=== PATIENT | male | born 1945 | race Caucasian/White ===

== ENCOUNTER 2017-08-12 23:14 | Emergency (ER) | payer MEDICARE, BC ==
--- NOTE | 2017-08-13 | RAD ---
PA CHEST WITH TWO VIEWS LEFT RIBS: Date: 08-12-17 History: Left sided chest pain when coughing and sneezing. Patient fell earlier this week. FINDINGS: The cardiac silhouette and pulmonary vasculature are within normal limits. The lungs are clear. No pn eumothorax or pleural effusion is seen. There are degenerative changes in the lumbar spine. No left sided rib fracture is appreciated. IMPRESSION: 1. No acute cardiopulmonary process. 2. No left sided rib fractures visualized. POS: [facility]
[2017-08-13 00:31] LABS: #Eosinphils 0.1 thou/uL (0.0-0.7); #Lymphocytes 1.5 thou/uL (1.20-3.40); #Monocytes 0.4 thou/uL (0.11-0.59); #Neutrophils 3.9 thou/uL (1.40-6.50); %Basophils 0.4 % (0.0-1.0); %Eosinophils 2.4 % (0.0-10.0); %Lymphocytes 24.5 % (21.0-51.0); %Neutrophils 65.7 % (42.0-75.0); Hemoglobin 13.1 g/dL (14.0-18.0); Mean Corpuscular HGB CONC 32.8 g/dL (32.0-36.0); Mean Corpuscular Hemoglobin 32.3 pg (27.0-31.0); Mean Corpuscular Volume 98.5 fl (80.0-94.0); Mean Platelet Volume 8.4 fL (7.4-10.4); Platelet Count 150 thou/uL (130-400); RBC Distribution Width 11.9 % (11.5-14.5); Red Blood Cell (RBC) Count 4.06 mill/uL (4.70-6.10); White Blood Cell (WBC) Count 5.9 thou/uL (4.8-10.8)
[2017-08-13 00:55] LABS: ALT (SGPT) 16 U/L (8-55); AST (SGOT) 22 U/L (5-34); Albumin 4.1 g/dL (3.4-4.8); Alkaline Phosphatase 46 U/L (40-150); Anion Gap 13 mmol/L (10-20); BUN (Urea Nitrogen) 22 mg/dL (8.4-25.7); Bilirubin, Total 0.7 mg/dL (0.2-1.2); Calc. Creatinine Clearance 0 mL/min (70-130); Calcium 9.5 mg/dL (7.8-10.44); Carbon Dioxide 25 mmol/L (23-31); Chloride 105 mmol/L (98-107); Estimated GFR-MDRD 68; Globulin 2.2 g/dL (2.4-3.5); Glucose 147 mg/dL (80-115); Potassium 3.8 mmol/L (3.5-5.1); Protein, Total 6.3 g/dL (5.8-8.1); Sodium 139 mmol/L (136-145)
[2017-08-13 01:00] LABS: CKMB 2.8 ng/mL (0-6.6); Troponin I Less than 0.010 ng/mL (< 0.028)
--- NOTE | 2017-08-18 19:03 | EKG ---
Test Reason : CHEST PAIN Blood Pressure : / mmHG Vent. Rate : 076 BPM Atrial Rate : 076 BPM P-R Int : 180 ms QRS Dur : 096 ms QT Int : 362 ms P-R-T Axes : 012 -23 026 degrees QTc Int : 407 ms Normal sinus rhythm Minimal voltage criteria for LVH, may be normal variant Borderline ECG Confirmed by MY TURNER, GEOR[place] ([id number]), editor magazine KELBY HARRIS ([id number]) on 08/18/2017 7:02:20 PM Referred By: Confirmed By:GEORGIA PEPE MD
== END 2017-08-13 01:28 | disposition home or self-care (01) ==
LOC: ERS 23:14
DX: R07.89 Other chest pain (principal); E11.9 Type 2 diabetes mellitus without complications; I10 Essential (primary) hypertension; E78.5 Hyperlipidemia, unspecified
CPT/HCPCS: 36415; 80053; 82553; 84484; 85025; 93005

== ENCOUNTER 2018-05-09 14:14 | Outpatient (CLI) | payer MEDICARE, BC ==
[~2018-05-09 14:14] MED LIST: Gadobenate Dimeglumine 529 MG/1 ML (20ML VIAL) ONE
--- NOTE | 2018-05-09 15:58 | MRI ---
LUMBAR SPINE MRI WITH AND WITHOUT CONTRAST: 05/09/18 INDICATION: Low back pain, lumbar radiculopathy, left lower extremity pain. FINDINGS: There is prominent disc degenerative disease at L5-S1 with marked narrowing of the distal space, end plate degenerative signal alteration, mild retrolisthesis of L5 on S1 and prominent marginal osteophy te formation. The conus medullaris has normal morphology, terminating at the L1-2 level. No evidence of acute compression fracture. There is evidence of prior posterior decompression at L5-S1 level. Wit hin the imaged retroperitoneum, there is a cyst of the lateral aspect of the right kidney with journalism internship al complex signal, incompletely evaluated. Finding is not well assessed on postcontrast imaging due t o the degree of patient motion. There is no mass producing intramedullary enhancement of the conus medullaris. There is prominent epi dural enhancement of the postoperative lumbosacral region encasing the terminal thecal sac with assoc iated constriction. This does result in severe central canal stenosis at L5-S1 when combined with dis c osteophyte complex. There is moderate biforaminal stenosis at L5-S1 as well. 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 Minimal posterior bulging discs are present at the L1-2, L2-3, and L3-4 with slight effacement of the ventral thecal sac. No high grade foraminal stenosis at these levels. L4-5: There is a broad based disc osteophyte complex which is combined with ligamentous redundancy an d bilateral moderate degenerative facet hypertrophy producing severe central canal stenosis. IMPRESSION: 1. Postoperative lumbar spine with severe central canal stenosis at the L4-5 and L5-S1 levels as described above. 2. Complex cystic lesion of the right kidney suggested, incompletely evaluated. Recommend follow up with renal mass protocol CT of abdomen to further evaluate. POS: [facility]
== END 2018-05-09 14:15 | disposition home or self-care (01) ==
LOC: TBSIIMAG 14:14
PROVIDERS: ATTEND Internal Medicine
DX: M54.16 Radiculopathy, lumbar region (principal); M48.061 Spinal stenosis, lumbar region without neurogenic claudication; M48.07 Spinal stenosis, lumbosacral region; Z98.890 Other specified postprocedural states
CPT/HCPCS: 72158; 82565; A9579

== ENCOUNTER 2018-07-22 00:52 | Observation (INO) | payer MEDICARE, BC ==
[2018-07-22 01:17] LABS: #Basophils 0.1 thou/uL (0.0-0.2); #Eosinphils 0.1 thou/uL (0.0-0.7); #Lymphocytes 1.4 thou/uL (1.20-3.40); #Monocytes 0.6 thou/uL (0.11-0.59); #Neutrophils 7.7 thou/uL (1.40-6.50); %Basophils 0.6 % (0.0-1.0); %Eosinophils 1.3 % (0.0-10.0); %Lymphocytes 14.3 % (21.0-51.0); %Monocytes 5.9 % (0.0-10.0); %Neutrophils 77.9 % (42.0-75.0); Mean Corpuscular HGB CONC 33.5 g/dL (32.0-36.0); Mean Corpuscular Hemoglobin 32.7 pg (27.0-31.0); Mean Corpuscular Volume 97.7 fL (78.0-98.0); Mean Platelet Volume 8.3 fL (7.4-10.4); Platelet Count 174 thou/uL (130-400); Red Blood Cell (RBC) Count 4.28 mill/uL (4.70-6.10); White Blood Cell (WBC) Count 9.9 thou/uL (4.8-10.8)
[2018-07-22 01:40] LABS: ALT (SGPT) 35 U/L (8-55); AST (SGOT) 21 U/L (5-34); Albumin 4.2 g/dL (3.4-4.8); Alkaline Phosphatase 56 U/L (40-150); Anion Gap 13 mmol/L (10-20); BUN (Urea Nitrogen) 21 mg/dL (8.4-25.7); Bilirubin, Total 0.6 mg/dL (0.2-1.2); Calc. Creatinine Clearance 0 mL/min (70-130); Carbon Dioxide 26 mmol/L (23-31); Chloride 104 mmol/L (98-107); Estimated GFR-MDRD 65; Globulin 2.6 g/dL (2.4-3.5); Glucose 137 mg/dL (80-115); Potassium 4.2 mmol/L (3.5-5.1); Protein, Total 6.8 g/dL (5.8-8.1); Sodium 139 mmol/L (136-145)
[2018-07-22] MEDS ORDERED: Nitroglycerin 2% Ointment 1 INCH/1 GM Packet ONE (01:56)
[2018-07-22] MEDS ORDERED: Aspirin 325 MG TAB ONE (01:56)
[2018-07-22 03:58] VITALS: BMI 31.4
[2018-07-22 05:55] LABS: Troponin I Less than 0.010 ng/mL (< 0.028)
[2018-07-22 07:38] LABS: Troponin I Less than 0.010 ng/mL (< 0.028)
[2018-07-22] MEDS ORDERED: Dextrose 50% Abboject 50 ML SYRINGE SLOW IVP PRN (08:26)
[2018-07-22] MEDS ORDERED: Acetaminophen 325 MG TAB PO PRN (08:26)
[2018-07-22] MEDS ORDERED: Senokot S 8.6-50 MG TAB PO PRN (08:26)
[2018-07-22] MEDS ORDERED: HumaLOG 300 UNITS/3 ML VIAL SC PRN ×2 (08:26)
[2018-07-22] MEDS ORDERED: Acetaminophen/Codeine 30-300mg Tablet PO PRN (08:26)
[2018-07-22] MEDS ORDERED: Dextrose 5% in Water 1,000 ML IV PRN (08:26)
[2018-07-22] MEDS ORDERED: Nitroglycerin 0.4 MG TAB (25 Tab Bottle) PO PRN (08:26)
--- NOTE | 2018-07-22 08:29 | RAD ---
SINGLE VIEW OF CHEST: Date: 07/22/18 HISTORY: Chest pain. FINDINGS: Single view of the chest shows a normal sized cardiomediastinal silhouette. There is no evidence of c onsolidation, mass, or pleural effusion. The bones are unremarkable. IMPRESSION: No evidence of acute cardiopulmonary disease. POS: [facility]
[2018-07-22] MEDS ORDERED: Enoxaparin Sodium 40 MG/0.4 ML SYRINGE SC SCH (09:00)
[2018-07-22] MEDS ORDERED: Aspirin 325 MG TAB PO SCH (09:00)
[2018-07-22] MEDS ORDERED: Famotidine 20 MG TAB PO SCH (09:00)
[2018-07-22] MEDS ORDERED: Atorvastatin Calcium 10 MG TAB PO SCH (09:00)
[2018-07-22 09:05] LABS: Cardiac Risk 2.7 (Less than 4.5)
[2018-07-22] MEDS ORDERED: ADENOSINE 60 MG/20 ML VIAL ONE (09:20)
--- NOTE | 2018-07-22 11:24 | ULT ---
RIGHT UPPER QUADRANT ULTRASOUND: HISTORY: Right upper quadrant pain. Evaluate for cholecystitis. COMPARISON: None. TECHNIQUE: Utilizing a multihertz transducer, sonographic imaging of the right upper quadrant is performed in th e longitudinal and transverse plane. FINDINGS: Limited evaluation of the pancreas due to bowel gas. Increased echogenicity of the liver may be due to technical limitations versus hepatic steatosis vers us hepatocellular disease. Subsequent evaluation for hepatic masses and intrahepatic biliary dilatat ion is limited. Contour of the hepatic margin cannot be adequately assessed. Limited evaluation of the common bile duct. Main portal vein appears to be patent. Appropriate direction of flow. Anechoic focus in the mid pole of the right kidney measuring 2.6 x 2.6 x 3.0 cm compatible with a cys t. Overall, the right kidney measures 9.4 x 5.0 x 5.6 cm. No hydronephrosis. No sonographic evidence of cholelithiasis, gallbladder wall thickening, or pericholecystic fluid. Co mment is not made on the presence of absence of Will's sign. IMPRESSION: 1. Limited evaluation due to body habitus and bowel gas. 2. No sonographic evidence of cholelithiasis or cholecystitis. 3. Right renal cyst. 4. Increased echogenicity of the liver as described above. If there is concern for hepatic masses, liver mass protocol CT or abdomen MRI can be performed. POS: [facility]
[2018-07-22 12:51] VITALS: BP 132/74; TEMP 97.4
--- NOTE | 2018-07-22 14:10 | NM ---
NUCLEAR MEDICINE CARDIAC STRESS TEST WITH EJECTION FRACTION: History: Chest pain. Comparison: None. Technique: Stress and rest performed after the intravenous administration of 33 and 10.2 mCi Techneti um 99M Sestamibi respectively. FINDINGS: Exam is limited as the patient refused the CT scan with the stress images. No evidence of scar or ischemia. Abdominal wall motion. Calculated ejection fraction is 54%. IMPRESSION: Normal exam. POS: [facility]
--- NOTE | 2018-07-22 15:32 | HP ---
REASON FOR ADMISSION: Chest pain. HISTORY OF PRESENTING ILLNESS: The patient gives history of waking up in the middle of the night for chest pain, which was all across his lower chest. This pain was radiating to the back. No complaints of palpitation, PND, or orthopnea. No complaints of cough. He has had no fever. No abdominal pain as such. No diarrhea or urinary symptoms. PAST MEDICAL AND SURGICAL HISTORY: Diabetes mellitus type 2, dyslipidemia, prior history of shingles more than 15 years ago, appendectomy, back surgery, right side rotator cuff repair, bilateral knee replacement, disk issues with likely sciatic on the left side. 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 CURRENT MEDICATIONS: 1. Metformin 500 mg twice daily. 2. Aspirin 81 mg p.o. daily. 3. Irbesartan 150 mg daily. ALLERGIES: ALLERGIC TO IODINE. PERSONAL HISTORY: Does not abuse alcohol or drugs. No history of smoking. He ambulates by himself. FAMILY HISTORY: Mother is living and is 92 years old. Father at the age of 88. He has had history of [place]. REVIEW OF SYSTEMS: CONSTITUTIONAL: Negative for weight loss or gain, ability to conduct usual activities. SKIN: Negative for rash, itching. EYES: Negative for double vision, pain. ENT/MOUTH: Negative for nose bleeding, neck stiffness, pain, tenderness. CARDIOVASCULAR: Negative for palpitations, dyspnea on exertion, orthopnea. RESPIRATORY: Negative for shortness of breath, wheezing, cough, hemoptysis, fever or night sweats. GASTROINTESTINAL: Negative for poor appetite, abdominal pain, heartburn, nausea , vomiting, constipation, or diarrhea. GENITOURINARY: Negative for urgency, frequency, dysuria, nocturia. MUSCULOSKELETAL: Negative for pain, swelling. NEUROLOGIC/PSYCHIATRIC: Negative for anxiety, depression. ALLERGY/IMMUNOLOGIC: Negative for skin rash, bleeding tendency. PHYSICAL EXAMINATION: GENERAL: The patient is a 72-year-old male, who is currently not in any acute distress. VITAL SIGNS: Blood pressure 130/84, pulse 86 per minute, respiratory rate 20 per minute, temperature 98.4 degrees Fahrenheit, saturating 97% on room air. NECK: Supple. No elevated JVD. HEENT: Eyes; extraocular muscles intact. Pupils reacting to light. Oral cavity, mucous membranes are moist. No exudates or congestion. CARDIOVASCULAR: S1 and S2 heard. Regular rhythm. RESPIRATORY: Air entry 2+ bilateral. No rales or rhonchi. ABDOMEN: Soft. Bowel sounds heard. No tenderness, rigidity, or guarding. EXTREMITIES: No peripheral edema or calf tenderness. VASCULAR: Peripheral pulses 2+ bilateral. No ischemic ulcerations or gangrene. CENTRAL NERVOUS SYSTEM: No gross focal deficits noted. The patient is alert, awake, and oriented well. PSYCHIATRIC: The patient's mood is euthymic. No hallucinations or delusions. CODE STATUS: Full. Power of neurology teacher is his . LABORATORY DATA: EKG done shows normal sinus rhythm at 91 beats per minute. There is poor R-wave progression. White count of 9, H and H of 14 and 41, platelet count 174, with 77% neutrophils, MCV is 97. Electrolytes stable. BUN 21, creatinine 1.1, serum glucose 137. Troponin x3 negative. Albumin 4.2, LDL 92. Total cholesterol 170, triglycerides 71, HDL 64. Chest x-ray done shows no acute cardiopulmonary abnormalities. Right upper quadrant ultrasound done showed no sonographic evidence of cholelithiasis or cholecystitis. Right renal cyst is seen. Increased echogenicity of liver is seen. Nuclear stress test done shows no evidence of scar or ischemia. Ejection fraction was 54%. CLINICAL IMPRESSION AND PLAN: The patient will be shortly discharged home. He came in with atypical chest pain and in view of his history of diabetes, the patient was placed under observation on telemetry to rule out acute coronary syndrome. He has had a nuclear stress test done, which showed no reversible ischemia. In view of his lower abdominal pain radiating to the back, right upper quadrant ultrasound done showed no evidence of cholecystitis. His pain is completely resolved at the time of discharge. He is ambulating and eating well. The patient has history of back pain and has destruction of one of the vertebra per the patient and is seeing Dr. Pennington for the same tomorrow. Likely, his pain might be related to that. He is otherwise hemodynamically stable and will be shortly discharged home. Please note this is a same day admit and discharge under observation status. Job ID: [id number] MTDD
== END 2018-07-22 14:05 | disposition home or self-care (01) ==
LOC: ERS 00:52 → 2SW 03:39
PROVIDERS: ADMIT Family Medicine; ATTEND Family Medicine
DX: R07.89 Other chest pain (principal); E11.9 Type 2 diabetes mellitus without complications; E78.5 Hyperlipidemia, unspecified; Z79.82 Long term (current) use of aspirin; Z79.899 Other long term (current) drug therapy; Z91.013 Allergy to seafood; Z91.041 Radiographic dye allergy status; Z79.84 Long term (current) use of oral hypoglycemic drugs
CPT/HCPCS: 71045; 76705; 78452; 80053; 80061; 82550; 82962; 84484 ×2; 85025; 93005; 93017; 96372; 99285; A9500; G0378; 36415; 36416; J0153; J1650

== ENCOUNTER 2018-08-13 15:02 | Outpatient (CLI) | payer MEDICARE, BC ==
--- NOTE | 2018-08-13 16:04 | RAD ---
LUMBAR SPINE TWO VIEWS: HISTORY: Lumbar stenosis with neurogenic claudication. COMPARISON: Lumbar spine MRI from 05/09/2018. FINDINGS: There is anterolisthesis of L4 over L5, grade 1, similar to the comparison MRI examination. No acute fracture or malalignment. There is moderate degenerative narrowing at L5-S1, with a large posterior disk osteophyte complex. IMPRESSION: Moderate spondylosis. POS: [facility]
== END 2018-08-13 15:03 | disposition home or self-care (01) ==
LOC: TBSIIMAG 15:02
PROVIDERS: ATTEND Neurological Surgery
DX: M48.062 Spinal stenosis, lumbar region with neurogenic claudication (principal); M47.816 Spondylosis without myelopathy or radiculopathy, lumbar region
CPT/HCPCS: 72100

== ENCOUNTER 2018-09-19 12:27 | Outpatient (CLI) | payer MEDICARE, BC ==
--- NOTE | 2018-09-19 13:09 | MRI ---
MRI BRAIN NONCONTRAST: DATE: 09/19/2018. HISTORY: A 72-year-old male with short-term memory loss. FINDINGS: The ventricles are normal in size and configuration. There is no major intraaxial signal abnormality , restricted diffusion, midline shift or any other mass effect, recent intraaxial hemorrhage, or extr aaxial fluid collection. IMPRESSION: Normal. jn[] POS: [facility]
== END 2018-09-19 12:28 | disposition home or self-care (01) ==
LOC: SCSMRI 12:27
PROVIDERS: ATTEND Internal Medicine
DX: R41.3 Other amnesia (principal)
CPT/HCPCS: 70551

== ENCOUNTER 2020-07-06 07:28 | Outpatient (CLI) | payer MEDICARE, BC ==
[2020-07-06 15:47] LABS: #Eosinphils 0.1 10x3/uL (0.0-0.5); #Monocytes 0.5 10x3/uL (0.0-1.1); #Neutrophils 5.2 10x3/uL (1.5-8.4); %Basophils 0.4 % (0.0-2.0); %Eosinophils 0.7 % (0.0-6.0); %Lymphocytes 19.5 % (18.0-47.0); %Monocytes 7.1 % (0.0-10.0); Hemoglobin 13.6 g/dL (14.0-18.0); Mean Corpuscular HGB CONC 33.3 G/DL (32.0-36.0); Mean Corpuscular Hemoglobin 32.1 PG (27.0-33.0); Mean Corpuscular Volume 96.5 fl (80.0-100.0); Mean Platelet Volume 11.7 fl (7.4-10.4); Platelet Count 152 10x3/uL (130-400); RBC Distribution Width 12.7 % (11.5-14.5); Red Blood Cell (RBC) Count 4.24 10x6/uL (4.40-5.80); White Blood Cell (WBC) Count 7.2 10x3/uL (4.5-11.0)
[2020-07-07 05:17] LABS: SARS-CoV-2 PCR by NAA Not Detected (NotDetected)
--- NOTE | 2020-07-07 07:12 | EKG ---
Test Reason : PREOP Blood Pressure : / mmHG Vent. Rate : 067 BPM Atrial Rate : 067 BPM P-R Int : 188 ms QRS Dur : 094 ms QT Int : 372 ms P-R-T Axes : 037 -08 019 degrees QTc Int : 393 ms Normal sinus rhythm with sinus arrhythmia Normal ECG Confirmed by DR. Edgar MCCRACKEN ([id number]) on 07/07/2020 7:12:27 AM Referred By: ELOISA Confirmed By:DR. Edgar MCCRACKEN
== END 2020-07-06 07:29 | disposition home or self-care (01) ==
LOC: LABBT 07:28
PROVIDERS: ATTEND Orthopaedic Surgery Hand Surgery
DX: Z01.818 Encounter for other preprocedural examination (principal); Z20.822 Contact with and (suspected) exposure to COVID-19; M65.342 Trigger finger, left ring finger
CPT/HCPCS: 85025; 93005; U0003; U0005; 87635; 93010

== ENCOUNTER 2020-07-09 05:41 | Day surgery (SDC) | payer MEDICARE, BC ==
[2020-07-07 10:08] VITALS: BMI 33.5
[2020-07-09] MEDS ORDERED: Sodium Chloride 0.9% 10 ML ONE (06:21)
[2020-07-09] MEDS ORDERED: Betamet Acet/Betamet Na Ph 30 MG/5 ML VIAL ONE (06:21)
[2020-07-09] MEDS ORDERED: Bupivacaine PF 0.5% 30 ML VIAL ONE (06:21)
[2020-07-09] MEDS ORDERED: Bacitracin Zinc Ointment 30 gm TUBE ONE (06:21)
[2020-07-09] MEDS ORDERED: Fentanyl 100 MCG/2 ML VIAL ONE (07:03)
[2020-07-09] MEDS ORDERED: Ketorolac Tromethamine 30 MG/ML VIAL ONE ×2 (08:20→09:50)
[2020-07-09] MEDS ORDERED: Lidocaine 1% PF 5 ML VIAL ONE (09:50)
[2020-07-09] MEDS ORDERED: PROPOFOL 200 MG/20 ML VIAL ONE (09:50)
[2020-07-09] MEDS ORDERED: ePHEDrine 50 MG/ML VIAL ONE (09:50)
[2020-07-09] MEDS ORDERED: Ondansetron PF 4 MG/2 ML Vial ONE (09:50)
== END 2020-07-09 09:30 | disposition home or self-care (01) ==
LOC: SDC 05:41
PROVIDERS: ATTEND Orthopaedic Surgery Hand Surgery
PROC: 0LN80ZZ Release Left Hand Tendon, Open Approach (ICD-10-PCS; principal; 2020-07-09)
DX: M65.342 Trigger finger, left ring finger (principal); E11.9 Type 2 diabetes mellitus without complications; I10 Essential (primary) hypertension; Z79.82 Long term (current) use of aspirin; Z79.84 Long term (current) use of oral hypoglycemic drugs; Z79.899 Other long term (current) drug therapy; Z88.8 Allergy status to other drugs, medicaments and biological substances; Z91.013 Allergy to seafood
CPT/HCPCS: J0690; J0702; J1885; J2405; J2704; J3010; J3490; S0020

== ENCOUNTER 2023-01-10 08:22 | Outpatient (CLI) | payer MEDICARE | END 2023-01-10 08:23 | disposition home or self-care (01) | LOC: NM 08:22 | PROVIDERS: ATTEND Psychiatry & Neurology Neurology | DX: G20 Parkinson's disease (principal); G91.2 (Idiopathic) normal pressure hydrocephalus | CPT/HCPCS: 78803; A9584 ×2 ==

== ENCOUNTER 2023-02-06 13:00 | Emergency (ER) | payer MEDICARE ==
[2023-02-06] MEDS ORDERED: Boostrix 0.5 ML (Tdap) VIAL (>/=7 yrs of age) ONE (13:57)
== END 2023-02-06 14:15 | disposition home or self-care (01) ==
LOC: ERS 13:00
DX: S40.021A Contusion of right upper arm, initial encounter (principal); E11.9 Type 2 diabetes mellitus without complications; E78.5 Hyperlipidemia, unspecified; I10 Essential (primary) hypertension; Z23 Encounter for immunization; Z79.84 Long term (current) use of oral hypoglycemic drugs; Z79.899 Other long term (current) drug therapy
CPT/HCPCS: 90471; 90715

== ENCOUNTER 2023-02-15 08:15 | Day surgery (SDC) | payer MEDICARE ==
[2023-02-15 09:06] VITALS: BMI 32.8
[2023-02-15 10:57] VITALS: BP 129/76
[2023-02-15 11:37] LABS: CSF, Glucose 59 mg/dl (40-70); CSF, Protein 82 mg/dL (15-40)
[2023-02-15 11:46] LABS: CSF Source CSF; Clarity Clear (Clear); Tube # 2
== END 2023-02-15 11:45 | disposition home or self-care (01) ==
LOC: RAD 08:15
PROVIDERS: ATTEND Psychiatry & Neurology Neurology
DX: G91.2 (Idiopathic) normal pressure hydrocephalus (principal)
CPT/HCPCS: 62270; 82945; 84157; 86592; 86612; 86635; 86698; 87070; 87205; 87529; 87899; 89051

== ENCOUNTER 2023-05-27 14:06 | Emergency (ER) | payer BC, MEDICARE ==
[2023-05-27 14:25] LABS: #Basophils 0.1 thou/uL (0.0-0.2); #Eosinphils 0.1 thou/uL (0.0-0.7); #Monocytes 0.6 thou/uL (0.11-0.59); #Neutrophils 4.5 thou/uL (1.40-6.50); %Basophils 0.7 % (0.0-1.0); %Eosinophils 1.8 % (0.0-10.0); %Lymphocytes 27.2 % (21.0-51.0); %Monocytes 7.6 % (0.0-10.0); %Neutrophils 61.9 % (42.0-75.0); Hematocrit 43.2 % (42.0-52.0); Hemoglobin 14.6 g/dL (14.0-18.0); Mean Corpuscular HGB CONC 33.8 g/dL (32.0-36.0); Mean Corpuscular Hemoglobin 33.1 pg (27.0-31.0); Mean Platelet Volume 10.4 fL (7.4-10.4); Platelet Count 157 10x3/uL (130-400); RBC Distribution Width 12.3 % (11.5-14.5); Red Blood Cell (RBC) Count 4.41 mill/uL (4.70-6.10); White Blood Cell (WBC) Count 7.3 10x3/uL (4.8-10.8)
[2023-05-27 14:40] LABS: ALT (SGPT) 22 U/L (8-55); AST (SGOT) 22 U/L (5-34); Albumin 4.4 g/dL (3.4-4.8); Alkaline Phosphatase 61 U/L (40-110); Anion Gap 17 mmol/L (10-20); BUN (Urea Nitrogen) 17 mg/dL (8.4-25.7); Bilirubin, Total 0.9 mg/dL (0.2-1.2); Calc. Creatinine Clearance 0 mL/min (70-130); Calcium 9.5 mg/dL (7.8-10.44); Carbon Dioxide 19 mmol/L (23-31); Chloride 108 mmol/L (98-107); Estimated GFR 62; Globulin 2.3 g/dL (2.4-3.5); Glucose 115 mg/dL (83-110); Lipase 107 U/L (8-78); Potassium 4.3 mmol/L (3.5-5.1); Protein, Total 6.7 g/dL (5.8-8.1); Sodium 140 mmol/L (136-145)
[2023-05-27 14:43] LABS: Troponin I Less than 0.010 ng/mL (< 0.028)
[2023-05-27] MEDS ORDERED: Morphine 4 MG/ML VIAL ONE (15:05)
== END 2023-05-27 17:27 | disposition home or self-care (01) ==
LOC: ERS 14:06
DX: S42.114A Nondisplaced fracture of body of scapula, right shoulder, initial encounter for closed fracture (principal); I10 Essential (primary) hypertension; E11.9 Type 2 diabetes mellitus without complications; W10.9XXA Fall (on) (from) unspecified stairs and steps, initial encounter; Y92.009 Unspecified place in unspecified non-institutional (private) residence as the place of occurrence of the external cause
CPT/HCPCS: 23570; 36415; 70450; 71045; 72125; 72128; 72131; 80053; 83690; 84484; 85025; 93005; 96374; G0390; J2270

== ENCOUNTER 2024-03-14 10:35 | Emergency (ER) | payer MEDICARE ==
[2024-03-14 11:04] LABS: #Basophils 0.04 10x3/uL (0.0-0.2); %Basophils 0.6 % (0.0-1.0); %Eosinophils 1.6 % (0.0-10.0); %Monocytes 5.9 % (0.0-10.0); %Neutrophils 75.6 % (42.0-75.0); Hematocrit 38.1 % (42.0-52.0); Hemoglobin 12.8 g/dL (14.0-18.0); Mean Corpuscular HGB CONC 33.6 g/dL (32.0-36.0); Mean Corpuscular Hemoglobin 32.9 pg (27.0-31.0); Mean Corpuscular Volume 97.9 fL (78.0-98.0); Mean Platelet Volume 10.9 fL (7.4-10.4); Platelet Count 154 10x3/uL (130-400); RBC Distribution Width 12.7 % (11.5-14.5); Red Blood Cell (RBC) Count 3.89 mill/uL (4.70-6.10)
[2024-03-14] MEDS ORDERED: Ketorolac Tromethamine 30 MG (1 mL) VIAL ONE (11:12)
[2024-03-14 11:28] LABS: ALT (SGPT) 21 U/L (8-55); AST (SGOT) 18 U/L (5-34); Albumin 3.8 g/dL (3.4-4.8); Alkaline Phosphatase 79 U/L (40-110); Anion Gap 14 mmol/L (10-20); BUN (Urea Nitrogen) 23 mg/dL (8.4-25.7); Bilirubin, Total 0.7 mg/dL (0.2-1.2); Calc. Creatinine Clearance 0 mL/min (70-130); Calcium 9.2 mg/dL (7.8-10.44); Carbon Dioxide 20 mmol/L (23-31); Chloride 109 mmol/L (98-107); Estimated GFR 59; Globulin 2.5 g/dL (2.4-3.5); Glucose 209 mg/dL (83-110); Potassium 4.3 mmol/L (3.5-5.1); Protein, Total 6.3 g/dL (5.8-8.1); Sodium 139 mmol/L (136-145)
== END 2024-03-14 11:55 | disposition home or self-care (01) ==
LOC: ERS 10:35
DX: S20.211A Contusion of right front wall of thorax, initial encounter (principal); E78.5 Hyperlipidemia, unspecified; E11.9 Type 2 diabetes mellitus without complications; I10 Essential (primary) hypertension; Z79.84 Long term (current) use of oral hypoglycemic drugs; Z79.899 Other long term (current) drug therapy; Z96.653 Presence of artificial knee joint, bilateral; W19.XXXA Unspecified fall, initial encounter
CPT/HCPCS: 71250; 80053; 85025; 93005; 96372; 99284; J1885; 36415